=== PATIENT | male | born 1960 | race Caucasian/White ===

== ENCOUNTER 2023-12-20 13:15 | Emergency (ER) | payer BC, SELFPAY ==
[2023-12-20] VITALS (38 sets, daily range): BP systolic 89–119; BP diastolic 50–73; PULSE 67–103; TEMP 36.2–37.4; O2SAT 92–97; BMI 32.4
--- NOTE | 2023-12-20 14:39 | CT_ITS ---
[address] [address] Patient Name: JENI TRENT MRN: [id number] date: 1960 Sex: M Assigned Patient Location: ER Current Patient Location: ER Accession/Order Number: [id number] Exam Date: 12/20/2023 15:05 Report Date: 12/20/2023 16:57 At the request of: MARIANELA ARNOLD Procedure: CT abdomen pelvis w con CT ABDOMEN AND PELVIS WITH CONTRAST: INDICATION: Left lower quadrant pain, left groin hernia. COMPARISON: None. TECHNIQUE: Helical CT images of the abdomen and pelvis were obtained after the administration of intravenous contrast. Dose reduction techniques were achieved by using automated exposure control and/or adjustment of mA and/or kV according to patient size and/or use of iterative reconstruction technique. FINDINGS: LOWER CHEST: There are a few tree-in-bud micronodules within the right middle lobe and lower lobe. LIVER: 5 mm cyst in the left hepatic lobe. Mildly enlarged at 19 cm in length. Mild diffuse fatty infiltration. GALLBLADDER AND BILIARY SYSTEM: Moderate gallbladder wall thickening with calcification in the gallbladder wall suggestive of porcelain gallbladder. SPLEEN: Normal. PANCREAS: Normal. ADRENAL GLANDS: Normal. KIDNEYS AND URETERS: Bilateral perinephric stranding consistent with medical renal disease. Small hypodensity in the upper pole of the left kidney suggestive of a cyst but too small to characterize, 8 mm left upper pole renal cyst, 14 mm left lower pole renal cyst. Small hypodensity in the upper pole of the right kidney, too small to characterize. 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 Diffuse atherosclerotic calcification of the abdominal aorta, iliac and femoral arteries. RETROPERITONEUM AND LYMPH NODES: Normal, with no lymphadenopathy. GASTROINTESTINAL TRACT/MESENTERY: Moderate hiatal hernia. There is a large indirect left inguinal hernia which contains sigmoid colon and mesenteric fat. The sigmoid colon demonstrates moderate wall thickening within the hernia sac suspicious for ischemia although it is not significantly dilated. There is Normal mesentery/peritoneum. Normal appendix. BLADDER: Mild wall thickening which may be due to underdistention or chronic outlet obstruction and there is mild calcification in the anterior bladder wall. REPRODUCTIVE SYSTEM: Enlarged prostate gland measuring 6.1 cm transverse. BODY WALL: A large left inguinal hernia is again noted. There is also a large indirect right inguinal hernia containing fat and small bowel with no obstruction or strangulation. BONES: There are moderate to severe multilevel degenerative changes of the lumbar spine. There is a prominent Schmorl's node in the inferior endplate at L4. CT/CT abdomen pelvis w con IMPRESSION: 1. Large indirect left inguinal hernia containing sigmoid colon and fat. There is no evidence of obstruction however there is wall thickening within the herniated sigmoid colon suspicious for ischemia/strangulation. Recommend surgical consultation. 2. There is an additional large indirect right inguinal hernia containing small bowel and fat with no obstruction or strangulation. 3. Tree-in-bud micronodules at the right lung base suggestive of infectious or aspiration bronchiolitis. 4. Hiatal hernia. 5. Fatty liver, renal cysts, with some lesions too small to characterize and small hepatic cyst. 6. Gallbladder wall thickening with calcifications consistent with porcelain gallbladder. No definite soft tissue mass is identified however this can be a risk factor for gallbladder carcinoma and recommend follow-up ultrasound. 7. Bladder wall thickening which may be due to chronic outlet obstruction or cystitis. There are a few nonspecific calcifications also seen within the anterior gallbladder wall. 8. Prostatomegaly. Electronically authenticated by: MANDEEP BHAKTA Date: 12/20/2023 16:57
--- NOTE | 2023-12-20 14:42 | ED.ABDPAIN1 ---
HPI - Abdominal Pain General Chief Complaint: Abdominal Pain Stated Complaint: GROIN PAIN Time Seen by Provider: 12/20/23 14:17 Source: patient Mode of arrival: walk-in Limitations: no limitations History of Present Illness HPI narrative: 63-year-old male presents for hernia pain. He had this repaired about 10 years ago. He states a year later it started bulging out again and it has been like that since. Over the years its gotten bigger and he finally got to the point where he wanted to come in and have it looked at. He states that when it bulges out he is able to push it back in place. No vomiting. The pain is moderate and its intermittent. Related Data Home Medications ?Medication ?Instructions ?Recorded ?Confirmed No Known Home Medications 12/20/23 12/20/23 Allergies Allergy/AdvReac Type Severity Reaction Status Date / Time No Known Drug Allergies Allergy Verified 12/20/23 13:33 Review of Systems ROS Narrative A ten point review of systems is negative except as noted above. Exam Narrative Exam Narrative: Nurses note and vital signs reviewed and patient is not hypoxic. General: The patient appears well and in no apparent distress. Patient is resting comfortably on cart. Skin: Warm, dry, no pallor noted. There is no rash noted. Head: Normocephalic, atraumatic Eye: Normal conjunctiva, no drainage Ears, Nose, Mouth, and Throat: oral mucosa is moist. Nares patent. Cardiovascular: Regular Rate and Rhythm Respiratory: Patient is in no distress, no accessory muscle use, lungs are clear to auscultation, no wheezing, rales or rhonchi Back: non-tender, no CVA tenderness bilaterally to percussion. GI: Soft and nondistended. He has left inguinal hernia protruding into the scrotum. It is reducible. Musculoskeletal: The patient has no evidence of calf tenderness, no pitting edema, symmetrical pulses noted bilaterally Neurological: A&O, normal speech Psychiatric: Cooperative Constitutional Vital Signs, click to edit/add: Last Vital Signs Temp 97.2 F L 12/20/23 17:57 Pulse 71 12/20/23 17:42 Resp 18 12/20/23 17:42 BP 90/50 12/20/23 17:42 Pulse Ox 96 12/20/23 17:40 O2 Del Method Room Air 12/20/23 14:14 Course Vital Signs Vital signs: Vital Signs Temperature 98.6 F 12/20/23 13:28 Pulse Rate 103 H 12/20/23 13:28 Respiratory Rate 20 12/20/23 13:28 Blood Pressure 119/72 12/20/23 13:28 Pulse Oximetry 95 12/20/23 13:28 Oxygen Delivery Method Room Air 12/20/23 13:28 Temperature 97.2 F L 12/20/23 17:57 Pulse Rate 71 12/20/23 17:42 Respiratory Rate 18 12/20/23 17:42 Blood Pressure 90/50 12/20/23 17:42 Pulse Oximetry 96 12/20/23 17:40 Oxygen Delivery Method Room Air 12/20/23 14:14 MDM - Abdominal Pain MDM Narrative Medical decision making narrative: WBC is elevated at 26,000 and his lactic acid is normal. CAT scan is abnormal and the case was discussed with Dr. Quevedo. He requests transfer to a larger facility. Patient is requesting [place] and I have spoken to Dr. Wright, general surgeon on-call, and Dr. Cook, emergency physician. Dr. Wright requests transfer from the emergency department to the emergency department. The patient is agreeable and stable for transfer. Initially his blood pressure was in the 90s and has come up into the 100s with IV fluids. He has not eaten anything today and had very minimal to drink. At this point I do not suspect incarceration or strangulation. Incidental findings of the gallbladder were discussed with the patient as well. On exam I am able to I believe fully reduced of his hernia but when my hands are removed the hernia comes out immediately. The concern regards the mesh and the quite elevated WBC. Differential Diagnosis Differential diagnosis: Likely abdominal pain, calculus of kidney, constipation, diverticulitis, small bowel obstruction and other (Hernia) Lab Data Attestation: I reviewed the patient's lab results. Labs: Lab Results 12/20/23 Range/Units 14:30 WBC 26.7 H (4.0-11.0) 10^3/uL RBC 5.20 (4.70-6.10) 10^6/uL Hgb 15.5 (14.0-18.0) g/dL Hct 46.2 (42.0-54.0) % MCV 88.8 (80.0-94.0) fL MCH 29.8 (25.9-34.0) pg MCHC 33.5 (29.9-35.2) g/dL RDW 12.7 (11.0-15.0) % Plt Count 331 (150-450) 10^3/uL MPV 10.5 (9.5-13.5) fL Seg Neuts % (Manual) 82.0 H (43.0-75.0) Band Neutrophils % 2.0 (0-5) % Lymphocytes % (Manual) 7.0 L (20.5-60.0) % Monocytes % (Manual) 9.0 (1.7-12.0) % Eosinophils % (Manual) 0.0 L (0.9-7.0) % Basophils % (Manual) 0.0 L (0.2-2.0) % Neutrophils # (Manual) 21.89 H (1.4-6.5) 10^3/uL Band Neutrophils # 0.5 H (0.0-0.3) 10^3/uL Lymphocytes # (Manual) 1.86 (1.20-3.80) 10^3/uL Monocytes # (Manual) 2.40 H (0.30-0.80) 10^3/uL Eosinophils # (Manual) 0.00 (0.00-0.70) 10^3/uL Basophils # (Manual) 0.00 (0.00-0.10) 10^3/uL Sodium 137 (136-145) mmol/L Potassium 3.5 (3.5-5.1) mmol/L Chloride 102 (98-107) mmol/L Carbon Dioxide 24.4 (21.0-32.0) mmol/L Anion Gap 14.1 BUN 14.0 (7.0-18.0) mg/dL Creatinine 1.08 (0.70-1.30) mg/dL Est GFR ( Amer) >60 (>=60) Est GFR (Non-Af Amer) >60 (>=60) BUN/Creatinine Ratio 13.0 Glucose 122 H (74-106) mg/dL Lactate 1.2 (0.4-2.0) mmol/L Calcium 8.9 (8.5-10.1) mg/dL Imaging Data CT scan - abdomen: Radiologist's impression: ITS Impressions Abdomen/Pelvis CT 12/20/23 14:39 IMPRESSION: 1. Large indirect left inguinal hernia containing sigmoid colon and fat. There is no evidence of obstruction however there is wall thickening within the herniated sigmoid colon suspicious for ischemia/strangulation. Recommend surgical consultation. 2. There is an additional large indirect right inguinal hernia containing small bowel and fat with no obstruction or strangulation. 3. Tree-in-bud micronodules at the right lung base suggestive of infectious or aspiration bronchiolitis. 4. Hiatal hernia. 5. Fatty liver, renal cysts, with some lesions too small to characterize and small hepatic cyst. 6. Gallbladder wall thickening with calcifications consistent with porcelain gallbladder. No definite soft tissue mass is identified however this can be a risk factor for gallbladder carcinoma and recommend follow-up ultrasound. 7. Bladder wall thickening which may be due to chronic outlet obstruction or cystitis. There are a few nonspecific calcifications also seen within the anterior gallbladder wall. 8. Prostatomegaly. Electronically authenticated by: MANDEEP BHAKTA Date: 12/20/2023 16:57 Discharge Plan Discharge Chief Complaint: Abdominal Pain Clinical Impression: Abdominal pain, Leukocytosis, Inguinal hernia Patient Disposition: [facility] Time of Disposition Decision: 18:03 Discharge Location: [facility] [address] Condition: Fair Mode of Transportation: Private Vehicle
[2023-12-20 14:49] LABS: Hematocrit 46.2 % (42.0-54.0); Hemoglobin 15.5 g/dL (14.0-18.0); Mean Corpuscular HGB Conc 33.5 g/dL (29.9-35.2); Mean Corpuscular Hemoglobin 29.8 pg (25.9-34.0); Mean Corpuscular Volume 88.8 fL (80.0-94.0); Mean Platelet Volume 10.5 fL (9.5-13.5); Platelet Count 331 10^3/uL (150-450); Red Cell Distribution Width 12.7 % (11.0-15.0); White Blood Count 26.7 10^3/uL (4.0-11.0)
[2023-12-20 14:57] LABS: Anion Gap 14.1; Calcium 8.9 mg/dL (8.5-10.1); Carbon Dioxide 24.4 mmol/L (21.0-32.0); Chloride 102 mmol/L (98-107); Estimated GFR (African America >60 (>=60); Estimated GFR (Non-African Ame >60 (>=60); Glucose 122 mg/dL (74-106); Potassium 3.5 mmol/L (3.5-5.1); Sodium 137 mmol/L (136-145)
[2023-12-20 15:07] LABS: Band Neutrophils Absolute 0.5 10^3/uL (0.0-0.3); Lymphocytes Absolute Manual 1.86 10^3/uL (1.20-3.80); Segmented Neut Absolute Manual 21.89 10^3/uL (1.4-6.5)
[2023-12-20 15:08] LABS: Lactate/Lactic Acid 1.2 mmol/L (0.4-2.0)
[2023-12-20] MEDS: 0.9 % SODIUM CHLORIDE 1,000 ML 200 ML IV (16:46)
[2023-12-20] MEDS: 0.9 % SODIUM CHLORIDE 1,000 ML 1000 ML IV (18:04)
[2023-12-20] MEDS: PIPERACILLIN SODIUM/TAZOBACTAM 3.375 GM in 0.9 % SODIUM CHLORIDE 50 ML IV (19:27)
== END 2023-12-20 20:50 | disposition short-term general hospital (02) ==
PROVIDERS: Emergency Provider Emergency Medicine; PCP Internal Medicine
DX: K40.90 Unilateral inguinal hernia, without obstruction or gangrene, not specified as recurrent (principal); R10.9 Unspecified abdominal pain
CPT/HCPCS: 36415; 74177; 80048; 83605; 85007; 85027; 96365; 99285; J2543; Q9967

== ENCOUNTER 2024-01-11 11:52 | Emergency (ER) | payer BC, SELFPAY ==
[2024-01-11] VITALS (7 sets, daily range): BP systolic 108–154; BP diastolic 65–101; PULSE 85–110; TEMP 37.2–39.5; O2SAT 92–98; BMI 32.7
--- OUTSIDE RECORDS SUMMARY | 2024-01-11 12:03 | XMS_ITS | CCD ---
Author Organization [facility] Care Team Providers Care Division Head Name Role Phone Rosa Laird Unavailable DR AISSATOU DUKE Admitting Unavailable SRIKANTH, DR AISSATOU Gonzalez Attending Unavailable SRIKANTH, DR AISSATOU Gonzalez Consulting Unavailable BLANCA, DR ISRA [facility] Unavail able SUSAN MADRIGAL Consulting Unavailable BLANCA, DR ISRA [facility] Unavail able ALMAZ URIBE Admitting Unavailable ALMAZ URIBE Attending Unavailable ALMAZ URIBE Consulting Unavailable MIGUEL LI Consulting Unavailable GILDA JOHN Consulting Unavailable ISRA RIOS Referring Unavailabl e BLANCA, ISRA Meadows Referring Unavailabl e BLANCA, CLARA M Primary Care Unavailchuy e MANDEEP PARK Consulting Unavailable MANDEEP PARK Admitting Unavailable MANDEEP PARK Attending Unavailable Problems Active Problems Problem Classification Problem Date Documented Da te Episodic/Chronic Abdominal hernia (1 source) Unilateral inguinal hernia, without obstruction or gangrene, not specified as recurrent; Translations: [Unilateral inguinal hernia, without obstruction or gangrene, not specified as recurrent] Onset: 12-20-2023 Episodic Conditions associated with dizziness or vertigo (4 sources) Dizziness and giddiness; Translations: [DIZZINESS AND GIDDINESS] Onset: 07-22-2022 Episodic Immunizations and screening for infectious disease (1 source) Contact with and (suspected) exposure to other viral communicable diseases Episodic Other aftercare (1 source) Other intermediate manager (current) drug therapy; Translations: [OTH JAIL CURRENT DRUG THERAPY] Onset: 07-24-2022 Episodic Other non-traumatic joint disorders (1 source) Pain in right hip; Translations: [Pain in right hip] Onset: 08-21-2023 Episodic Other non-traumatic joint disorders (1 source) Pain in left knee; Translations: [Pain in left knee] Onset: 08-21-2023 Episodic Other non-traumatic joint disorders (1 source) Pain in unspecified hip; Translations: [Pain in unspecified hip] Onset: 08-21-2023 Episodic Other upper respiratory infections (1 source) Acute upper respiratory infection, unspecified Episodic Unclassified (1 source) CONTACT W/AND (SUSP) EXPOS COVID-19; Translations: [CONTACT W/AND (SUSP) EXPOS COVID-19] Onset: 07-24-2022 Past or Other Problems Problem Classification Problem Date Documented Da te Episodic/Chronic E Codes: Struck by; against (1 source) Striking against or struck by other objects, initial encounter; Translations: [STRIKING AGNST/STRUCK OTH OBJ INIT] Onset: 11-19-2021 Episodic Other connective tissue disease (3 sources) Pain in left hand; Translations: [PAIN IN LEFT HAND] Onset: 11-16-2021 Episodic Superficial injury; contusion (1 source) Contusion of left hand, initial encounter; Translations: [CONTUSION LEFT HAND INITIAL ENC] Onset: 11-19-2021 Episodic Results Test Name Value Interpretation Reference Range Facility Lactic Acidon 12-24-2023 Lactic Acid,Whole Bl 1.0 mmol/L Normal 0.7-2.1 [facility] Comment on above: Performed By: #### L ACTIC #### [facility] [address] [place] [id number] [employer]: Daquan Daniel MD Basic Metab w/rfx MGon 12-22 Anion gap [Moles/Vol] 9 mmol/L Normal 16 [facility] Comment on above: Performed By: #### B MPX, CDP #### [facility] [address] [place] [phone] [employer]: Daquan Daniel MD Calcium [Mass/Vol] 8.7 mg/dL Normal 8.6-10.4 [facility] Comment on above: Performed By: #### B MPX, CDP #### [employer] [address] [place] [id number] [employer]: Daquan Daniel MD Chloride [Moles/Vol] 103 mmol/L Normal 98-107 [facility] Comment on above: Performed By: #### B MPX, CDP #### [facility] [address] [place] [address] [employer]: Daquan Daniel MD CO2 [Moles/Vol] 25 mmol/L Normal 20-31 [facility] Comment on above: Performed By: #### B MPX, CDP #### [facility] [address] [place] [address] [employer]: Daquan Daniel MD Creatinine [Mass/Vol] 0.8 mg/dL Normal 0.70-1.20 [facility] Comment on above: Performed By: #### B MPX, CDP #### [address] [address] [employer]: Daquan Daniel MD GFR/1.73 sq M.predicted among non-blacks MDRD (S/P/Bld) [Vol rate/Area] mL/min/{1.73_m2} Normal >60 [facility] Comment on above: Result Comment: These results are not intended for use in patients <18 years of age. eGFR results are calculated without a race factor using the 2020 CKD-EPI equation. Careful clinical correlation is recommended, particularly when comparing to results calculated using previous equations. The CKD-EPI equation is less accurate in patients with extremes of muscle mass, extra-renal metabolism of creatine, excessive creatine ingestion, or following therapy that affects renal tubular secretion. Performed By: #### B MPX, CDP #### [facility] [address] [place] [phone] [employer]: Daquan Daniel MD Glucose [Mass/Vol] 134 mg/dL High 74-99 [facility] Comment on above: Performed By: #### B MPX, CDP #### [facility] [address] [place] [address] [employer]: Daquan Daniel MD Potassium [Moles/Vol] 3.7 mmol/L Normal 3.7-5.3 [facility] Comment on above: Performed By: #### B YADIX, CDP #### [address] [address] [employer]: Daquan Daniel MD Sodium [Moles/Vol] 137 mmol/L Normal 136-145 [facility] Comment on above: Performed By: #### B MPX, CDP #### [address] [address] [employer]: Daquan Daniel MD Urea nitrogen [Mass/Vol] 10 mg/dL Normal 8-23 [facility] Comment on above: Performed By: #### B YADIX, CDP #### [address] [address] [employer]: Daquan Daniel MD CBC with Diffon 12-23-2023 Abs. Basophil 0.05 k/uL Normal 0.00-0.20 [facility] Comment on above: Performed By: #### B YADIX, CDP #### [address] [address] [employer]: Daquan Daniel MD Abs.Imm.Granulocyt e 0.03 k/uL Normal 0.00-0.30 [facility] Comment on above: Performed By: #### B YADIX, CDP #### [address] [address] [employer]: Daquan Daniel MD Abs.Neutrophil (Seg) 7.39 k/uL Normal 1.50-8.10 [facility] Comment on above: Performed By: #### B MPX, CDP #### [address] [address] [employer]: Daquan Daniel MD Basophils/100 WBC (Bld) 1 % Normal 0-2 [facility] Comment on above: Performed By: #### B MPX, CDP #### [facility] [address] [place] [address] [employer]: Daquan Daniel MD Eosinophils (Bld) [#/Vol] 0.30 10*3/uL Normal 0.00-0.44 [facility] Comment on above: Performed By: #### B MPX, CDP #### [facility] [address] [place] [address] [employer]: Daquan Daniel MD Eosinophils/100 WBC (Bld) 3 % Normal 1-4 [facility] Comment on above: Performed By: #### B MPX, CDP #### [facility] [address] [place] [address] [employer]: Daquan Daniel MD Erythrocyte distribution width (RBC) [Ratio] 12.9 % Normal 11.8-14.4 [facility] Comment on above: Performed By: #### B MPX, CDP #### [address] [address] [employer]: Daquan Daniel MD Hematocrit (Bld) [Volume fraction] 41.0 % Normal 40.7-50.3 [facility] Comment on above: Performed By: #### B MPX, CDP #### [facility] [address] [place] [address] [employer]: Daquan Daniel MD Hemoglobin (Bld) [Mass/Vol] 13.3 g/dL Normal 13.0-17.0 [facility] Comment on above: Performed By: #### B MPX, CDP #### [facility] [address] [place] [address] [employer]: Daquan Daniel MD Immature granulocytes/100 WBC (Bld) 0 % Normal 0 [facility] Comment on above: Performed By: #### B MPX, CDP #### [address] [address] [employer]: Daquan Daniel MD Lymphocytes (Bld) [#/Vol] 2.24 10*3/uL Normal 1.10-3.70 [facility] Comment on above: Performed By: #### B MPX, CDP #### [address] [address] [employer]: Daquan Daniel MD Lymphocytes/100 WBC (Bld) 21 % Low 24-43 [facility] Comment on above: Performed By: #### B MPX, CDP #### [address] [address] [employer]: Daquan Daniel MD MCH (RBC) [Entitic mass] 30.0 pg Normal 25.2-33.5 [facility] Comment on above: Performed By: #### B MPX, CDP #### [place] [address] [employer]: Daquan Daniel MD MCHC (RBC) [Mass/Vol] 32.4 g/dL Normal 28.4-34.8 [facility] Comment on above: Performed By: #### B MPX, CDP #### [place] [address] [employer]: Daquan Daniel MD MCV (RBC) [Entitic vol] 92.3 fL Normal 82.6-102.9 [facility] Comment on above: Performed By: #### B MPX, CDP #### [address] [address] [employer]: Daquan Daniel MD Monocytes (Bld) [#/Vol] 0.63 10*3/uL Normal 0.10-1.20 [facility] Comment on above: Performed By: #### B MPX, CDP #### [address] [address] [employer]: Daquan Daniel MD Monocytes/100 WBC (Bld) 6 % Normal 3-12 [facility] Comment on above: Performed By: #### B MPX, CDP #### [facility] [address] [place] [address] [employer]: Daquan Daniel MD Neutrophil (Seg) 69 % High 36-65 [facility] Comment on above: Performed By: #### B MPX, CDP #### [facility] [address] [place] [address] [employer]: Daquan Daniel MD NRBC Automated 0.0 per 100 WBC Normal 0.0 [facility] Comment on above: Performed By: #### B MPX, CDP #### [facility] [address] [place] [address] [employer]: Daquan Daniel MD Platelet mean volume (Bld) [Entitic vol] 10.7 fL Normal 8.1-13.5 [facility] Comment on above: Performed By: #### B MPX, CDP #### [address] [address] [employer]: Daquan Daniel MD Platelets (Bld) [#/Vol] 264 10*3/uL Normal 138-453 [facility] Comment on above: Performed By: #### B MPX, CDP #### [facility] [address] [place] [address] [employer]: Daquan Daniel MD RBC (Bld) [#/Vol] 4.44 10*6/uL Normal 4.21-5.77 [facility] Comment on above: Performed By: #### B MPX, CDP #### [facility] [address] [place] [address] [employer]: Daquan Daniel MD WBC (Bld) [#/Vol] 10.6 10*3/uL Normal 3.5-11.3 [facility] Comment on above: Performed By: #### B MPX, CDP #### [facility] [address] [place] [address] [employer]: Daquan Daniel MD Lactic Acidon 12-23-2023 Lactic Acid,Whole Bl 0.8 mmol/L Normal 0.7-2.1 [facility] Comment on above: Performed By: #### L ACTIC #### [facility] [address] [place] [address] [employer]: Daquan Daniel MD Lactic Acid,Whole Bl 1.5 mmol/L Normal 0.7-2.1 [facility] Comment on above: Performed By: #### B MPX, CDP #### [facility] [address] [place] [address] [employer]: Daquan Daniel MD Liver Profileon 12-23-2023 Albumin [Mass/Vol] 3.7 g/dL Normal 3.5-5.2 [facility] Comment on above: Performed By: #### B MPX, CDP #### [facility] [address] [place] [address] [employer]: Daquan Daniel MD Albumin/Glob Ratio 1.0 Normal 1.0-2.5 [facility] Comment on above: Performed By: #### B MPX, CDP #### [facility] [address] [place] [address] [employer]: Daquan Daniel MD Alkaline Phos 66 U/L Normal 40-129 [facility] Comment on above: Performed By: #### B MPX, CDP #### [facility] [address] [place] [address] [employer]: Daquan Daniel MD ALT [Catalytic activity/Vol] 13 U/L Normal 10-50 [facility] Comment on above: Performed By: #### B MPX, CDP #### [facility] [address] [place] [address] [employer]: Daquan Daniel MD AST [Catalytic activity/Vol] 16 U/L Normal 10-50 [facility] Comment on above: Performed By: #### B MPX, CDP #### [facility] [address] [place] [address] [employer]: Daquan Daniel MD Bilirubin [Mass/Vol] 0.4 mg/dL Normal 0.00-1.20 [facility] Comment on above: Performed By: #### B MPX, CDP #### [facility] [address] [place] [id number] [employer]: Daquan Daniel MD Bilirubin, Indirect 0.2 mg/dL Normal 0.0-1.0 [facility] Comment on above: Performed By: #### B MPX, CDP #### [facility] [address] [place] [address] [employer]: Daquan Daniel MD Bilirubin.indirect [Mass/Vol] 0.2 mg/dL Normal 0.0-0.2 [facility] Comment on above: Performed By: #### B MPX, CDP #### [facility] [address] [place] [address] [employer]: Daquan Daniel MD Globulin (S) [Mass/Vol] 2.7 g/dL Normal [facility] Comment on above: Performed By: #### B MPX, CDP #### [facility] [address] [place] [address] [employer]: Daquan Daniel MD Protein [Mass/Vol] 6.4 g/dL Low 6.6-8.7 [facility] Comment on above: Performed By: #### B MPX, CDP #### [facility] [address] [place] [address] [employer]: Daquan Daniel MD Basic Metab w/rfx MGon 12-21 Anion gap [Moles/Vol] 10 mmol/L Normal 9-16 [facility] Comment on above: Performed By: #### C DP, BMPX #### [facility] [address] [place] [address] [employer]: Daquan Daniel MD Calcium [Mass/Vol] 8.1 mg/dL Low 8.6-10.4 [facility] Comment on above: Performed By: #### C DP, BMPX #### [facility] [address] [place] [address] [employer]: Daquan Daniel MD Chloride [Moles/Vol] 105 mmol/L Normal 98-107 [facility] Comment on above: Performed By: #### C DP, BMPX #### [facility] [address] [place] [address] [employer]: Daquan Daniel MD CO2 [Moles/Vol] 19 mmol/L Low 20-31 [facility] Comment on above: Performed By: #### C DP, BMPX #### [facility] [address] [place] [address] [employer]: Daquan Daniel MD Creatinine [Mass/Vol] 0.8 mg/dL Normal 0.70-1.20 [facility] Comment on above: Performed By: #### C DP, BMPX #### [facility] [address] [place] [address] [employer]: Daquan Daniel MD GFR/1.73 sq M.predicted among non-blacks MDRD (S/P/Bld) [Vol rate/Area] mL/min/{1.73_m2} Normal >60 [facility] Comment on above: Result Comment: These results are not intended for use in patients <18 years of age. eGFR results are calculated without a race factor using the 2020 CKD-EPI equation. Careful clinical correlation is recommended, particularly when comparing to results calculated using previous equations. The CKD-EPI equation is less accurate in patients with extremes of muscle mass, extra-renal metabolism of creatine, excessive creatine ingestion, or following therapy that affects renal tubular secretion. Performed By: #### C DP, BMPX #### [facility] [address] [place] [address] [employer]: Daquan Daniel MD Glucose [Mass/Vol] 112 mg/dL High 74-99 [facility] Comment on above: Performed By: #### C DP, BMPX #### [facility] [address] [place] [address] [employer]: Daquan Daniel MD Potassium [Moles/Vol] 4.6 mmol/L Normal 3.7-5.3 [facility] Comment on above: Result Comment: SPEC IMEN SLIGHTLY HEMOLYZED, RESULTS MAY BE ADVERSELY AFFECTED. Performed By: #### C DP, BMPX #### [facility] [address] [place] [address] [employer]: Daquan Daniel MD Sodium [Moles/Vol] 134 mmol/L Low 136-145 [facility] Comment on above: Performed By: #### C DP, BMPX #### [facility] [address] [place] [phone] [employer]: Daquan Daniel MD Urea nitrogen [Mass/Vol] 11 mg/dL Normal 8-23 [facility] Comment on above: Performed By: #### C DP, BMPX #### [facility] [address] [place] [address] [employer]: Daquan Daniel MD CBC with Diffon 12-22-2023 Abs. Basophil <0.03 Normal 0.00-0.20 [facility] Comment on above: Performed By: #### C DP, BMPX #### [facility] [address] [place] [address] [employer]: Daquan Daniel MD Abs. Eosinophil <0.03 Normal 0.00-0.44 [facility] Comment on above: Performed By: #### C DP, BMPX #### [address] [address] [employer]: Daquan Daniel MD Abs.Imm.Granulocyt e 0.08 k/uL Normal 0.00-0.30 [facility] Comment on above: Performed By: #### C DP, BMPX #### [address] [address] [employer]: Daquan Daniel MD Abs.Neutrophil (Seg) 9.94 k/uL High 1.50-8.10 [facility] Comment on above: Performed By: #### C DP, BMPX #### [address] [address] [employer]: Daquan Daniel MD Basophils/100 WBC (Bld) 0 % Normal 0-2 [facility] Comment on above: Performed By: #### C DP, BMPX #### [address] [address] [employer]: Daquan Daniel MD Eosinophils/100 WBC (Bld) 0 % Low 1-4 [facility] Comment on above: Performed By: #### C DP, BMPX #### [facility] [address] [place] [address] [employer]: Daquan Daniel MD Erythrocyte distribution width (RBC) [Ratio] 12.8 % Normal 11.8-14.4 [facility] Comment on above: Performed By: #### C DP, BMPX #### [facility] [address] [place] [address] [employer]: Daquan Daniel MD Hematocrit (Bld) [Volume fraction] 41.1 % Normal 40.7-50.3 [facility] Comment on above: Performed By: #### C DP, BMPX #### [address] [address] [employer]: Daquan Daniel MD Hemoglobin (Bld) [Mass/Vol] 12.8 g/dL Low 13.0-17.0 [facility] Comment on above: Performed By: #### C DP, BMPX #### [address] [address] [employer]: Daquan Daniel MD Immature granulocytes/100 WBC (Bld) 1 % High 0 [facility] Comment on above: Performed By: #### C DP, BMPX #### [address] [address] [employer]: Daquan Daniel MD Lymphocytes (Bld) [#/Vol] 1.23 10*3/uL Normal 1.10-3.70 [facility] Comment on above: Performed By: #### C DP, BMPX #### [address] [address] [employer]: Daquan Daniel MD Lymphocytes/100 WBC (Bld) 10 % Low 24-43 [facility] Comment on above: Performed By: #### C DP, BMPX #### [place] [address] [employer]: Daquan Daniel MD MCH (RBC) [Entitic mass] 30.0 pg Normal 25.2-33.5 [facility] Comment on above: Performed By: #### C DP, BMPX #### [address] [address] [employer]: Daquan Daniel MD MCHC (RBC) [Mass/Vol] 31.1 g/dL Normal 28.4-34.8 [facility] Comment on above: Performed By: #### C DP, BMPX #### [address] [address] [employer]: Daquan Daniel MD MCV (RBC) [Entitic vol] 96.3 fL Normal 82.6-102.9 [facility] Comment on above: Performed By: #### C DP, BMPX #### [address] [address] [employer]: Daquan Daniel MD Monocytes (Bld) [#/Vol] 0.91 10*3/uL Normal 0.10-1.20 [facility] Comment on above: Performed By: #### C DP, BMPX #### [address] [address] [employer]: Daquan Daniel MD Monocytes/100 WBC (Bld) 8 % Normal 3-12 [facility] Comment on above: Performed By: #### C DP, BMPX #### [address] [address] [employer]: Daquan Daniel MD Neutrophil (Seg) 81 % High 36-65 [facility] Comment on above: Performed By: #### C DP, BMPX #### [address] [address] [employer]: Daquan Daniel MD NRBC Automated 0.0 per 100 WBC Normal 0.0 [facility] Comment on above: Performed By: #### C DP, BMPX #### [address] [address] [employer]: Daquan Daniel MD Platelet mean volume (Bld) [Entitic vol] 10.2 fL Normal 8.1-13.5 [facility] Comment on above: Performed By: #### C DP, BMPX #### [address] [address] [employer]: Daquan Daniel MD Platelets (Bld) [#/Vol] 249 10*3/uL Normal 138-453 [facility] Comment on above: Performed By: #### C DP, BMPX #### [facility] [address] [place] [address] [employer]: Daquan Daniel MD RBC (Bld) [#/Vol] 4.27 10*6/uL Normal 4.21-5.77 [facility] Comment on above: Performed By: #### C DP, BMPX #### [facility] [address] [place] [address] [employer]: Daquan Daniel MD WBC (Bld) [#/Vol] 12.2 10*3/uL High 3.5-11.3 [facility] Comment on above: Performed By: #### C DP, BMPX #### [facility] [address] [place] [address] [employer]: Daquan Daniel MD Lactic Acidon 12-22-2023 Lactic Acid,Whole Bl 2.4 mmol/L High 0.7-2.1 [facility] Comment on above: Performed By: #### L ACTIC #### [facility] [address] [place] [address] [employer]: Daquan Daniel MD Lactic Acid,Whole Bl 2.2 mmol/L High 0.7-2.1 [facility] Comment on above: Performed By: #### L ACTIC #### [facility] [address] [place] [address] [employer]: Daquan Daniel MD Lactic Acid,Whole Bl 0.9 mmol/L Normal 0.7-2.1 [facility] Comment on above: Performed By: #### L ACTIC #### [facility] [address] [place] [address] [employer]: Daquan Daniel MD Basic Metab w/rfx MGon 12-20 Anion gap [Moles/Vol] 9 mmol/L Normal 9-16 [facility] Comment on above: Performed By: #### B MPX, CDP #### [facility] [address] [place] [address] [employer]: Daquan Daniel MD Calcium [Mass/Vol] 8.2 mg/dL Low 8.6-10.4 [facility] Comment on above: Performed By: #### B MPX, CDP #### [facility] [address] [place] [address] [employer]: Daquan Daniel MD Chloride [Moles/Vol] 107 mmol/L Normal 98-107 [facility] Comment on above: Performed By: #### B MPX, CDP #### [facility] [address] [place] [place] [id number] [employer]: Daquan Daniel MD CO2 [Moles/Vol] 21 mmol/L Normal 20-31 [facility] Comment on above: Performed By: #### B MPX, CDP #### [facility] [address] [place] [id number] [employer]: Daquan Daniel MD Creatinine [Mass/Vol] 0.9 mg/dL Normal 0.70-1.20 [facility] Comment on above: Performed By: #### B MPX, CDP #### [facility] [address] [place] [address] [id number] [employer]: Daquan Daniel MD GFR/1.73 sq M.predicted among non-blacks MDRD (S/P/Bld) [Vol rate/Area] mL/min/{1.73_m2} Normal >60 [facility] Comment on above: Result Comment: These results are not intended for use in patients <18 years of age. eGFR results are calculated without a race factor using the 2020 CKD-EPI equation. Careful clinical correlation is recommended, particularly when comparing to results calculated using previous equations. The CKD-EPI equation is less accurate in patients with extremes of muscle mass, extra-renal metabolism of creatine, excessive creatine ingestion, or following therapy that affects renal tubular secretion. Performed By: #### B MPX, CDP #### [facility] [address] [place] [id number] [employer]: Daquan Daniel MD Glucose [Mass/Vol] 102 mg/dL High 74-99 [facility] Comment on above: Performed By: #### B MPX, CDP #### [facility] [address] [place] [address] 61606 [employer]: Daquan Daniel MD Potassium [Moles/Vol] 3.9 mmol/L Normal 3.7-5.3 [facility] Comment on above: Result Comment: SPEC IMEN SLIGHTLY HEMOLYZED, RESULTS MAY BE ADVERSELY AFFECTED. Performed By: #### B MPX, CDP #### [facility] [address] [place] [address] [id number] [employer]: Daquan Daniel MD Sodium [Moles/Vol] 137 mmol/L Normal 136-145 [facility] Comment on above: Performed By: #### B MPX, CDP #### [facility] [address] [place] [address] [phone] [employer]: Daquan Daniel MD Urea nitrogen [Mass/Vol] 12 mg/dL Normal 8-23 [facility] Comment on above: Performed By: #### B MPX, CDP #### [facility] [address] [place] [address] 66022 [employer]: Daquan Daniel MD CBC with Diffon 12-21-2023 Abs. Basophil 0.06 k/uL Normal 0.00-0.20 [facility] Comment on above: Performed By: #### B MPX, CDP #### [facility] [address] [place] [address] 17810 [employer]: Daquan Daniel MD Abs.Imm.Granulocyt e 0.05 k/uL Normal 0.00-0.30 [facility] Comment on above: Performed By: #### B MPX, CDP #### [address] [address] [employer]: Daquan Daniel MD Abs.Neutrophil (Seg) 9.66 k/uL High 1.50-8.10 [facility] Comment on above: Performed By: #### B MPX, CDP #### [address] [address] [employer]: Daquan Daniel MD Basophils/100 WBC (Bld) 0 % Normal 0-2 [facility] Comment on above: Performed By: #### B MPX, CDP #### [address] [address] [employer]: Daquan Daniel MD Eosinophils (Bld) [#/Vol] 0.39 10*3/uL Normal 0.00-0.44 [facility] Comment on above: Performed By: #### B MPX, CDP #### [address] [address] [employer]: Daquan Daniel MD Eosinophils/100 WBC (Bld) 3 % Normal 1-4 [facility] Comment on above: Performed By: #### B MPX, CDP #### [address] [address] [employer]: Daquan Daniel MD Erythrocyte distribution width (RBC) [Ratio] 13.2 % Normal 11.8-14.4 [facility] Comment on above: Performed By: #### B MPX, CDP #### [address] [address] [employer]: Daquan Daniel MD Hematocrit (Bld) [Volume fraction] 43.0 % Normal 40.7-50.3 [facility] Comment on above: Performed By: #### B MPX, CDP #### [address] [address] [employer]: Daquan Daniel MD Hemoglobin (Bld) [Mass/Vol] 13.5 g/dL Normal 13.0-17.0 [facility] Comment on above: Performed By: #### B MPX, CDP #### [facility] [address] [place] [address] 26865 [employer]: Daquan Daniel MD Immature granulocytes/100 WBC (Bld) 0 % Normal 0 [facility] Comment on above: Performed By: #### B MPX, CDP #### [facility] [address] [place] [address] [phone] [employer]: Daquan Daniel MD Lymphocytes (Bld) [#/Vol] 2.86 10*3/uL Normal 1.10-3.70 [facility] Comment on above: Performed By: #### B MPX, CDP #### [address] [address] [employer]: Daquan Daniel MD Lymphocytes/100 WBC (Bld) 20 % Low 24-43 [facility] Comment on above: Performed By: #### B MPX, CDP #### [address] [address] [employer]: Daquan Daniel MD MCH (RBC) [Entitic mass] 30.4 pg Normal 25.2-33.5 [facility] Comment on above: Performed By: #### B MPX, CDP #### [facility] [address] [place] [address] 60925 [employer]: Daquan Daniel MD MCHC (RBC) [Mass/Vol] 31.4 g/dL Normal 28.4-34.8 [facility] Comment on above: Performed By: #### B MPX, CDP #### [address] [address] [employer]: Daquan Daniel MD MCV (RBC) [Entitic vol] 96.8 fL Normal 82.6-102.9 [facility] Comment on above: Performed By: #### B MPX, CDP #### [address] [address] [employer]: Daquan Daniel MD Monocytes (Bld) [#/Vol] 0.99 10*3/uL Normal 0.10-1.20 [facility] Comment on above: Performed By: #### B MPX, CDP #### [address] [address] [employer]: Daquan Daniel MD Monocytes/100 WBC (Bld) 7 % Normal 3-12 [facility] Comment on above: Performed By: #### B MPX, CDP #### [address] [address] [employer]: Daquan Daniel MD Neutrophil (Seg) 69 % High 36-65 [facility] Comment on above: Performed By: #### B MPX, CDP #### [address] [address] [employer]: Daquan Daniel MD NRBC Automated 0.0 per 100 WBC Normal 0.0 [facility] Comment on above: Performed By: #### B MPX, CDP #### [address] [address] [employer]: Daquan Daniel MD Platelet mean volume (Bld) [Entitic vol] 10.1 fL Normal 8.1-13.5 [facility] Comment on above: Performed By: #### B MPX, CDP #### [address] [address] [employer]: Daquan Daniel MD Platelets (Bld) [#/Vol] 241 10*3/uL Normal 138-453 [facility] Comment on above: Performed By: #### B MPX, CDP #### [facility] [address] [place] [address] 10566 [employer]: Daquan Daniel MD RBC (Bld) [#/Vol] 4.44 10*6/uL Normal 4.21-5.77 [facility] Comment on above: Performed By: #### B MPX, CDP #### [facility] [address] [place] [phone] [employer]: Daquan Daniel MD WBC (Bld) [#/Vol] 14.0 10*3/uL High 3.5-11.3 [facility] Comment on above: Performed By: #### B MPX, CDP #### [facility] [address] [place] [address] 57024 [employer]: Daquan Daniel MD Lactic Acidon 12-21-2023 Lactic Acid,Whole Bl 1.2 mmol/L Normal 0.7-2.1 [facility] Comment on above: Performed By: #### L ACTIC #### [facility] [address] [place] [address] 30489 [employer]: Daquan Daniel MD Lactic Acid,Whole Bl 1.3 mmol/L Normal 0.7-2.1 [facility] Comment on above: Performed By: #### L ACTIC #### [facility] [address] [place] [address]858 [employer]: Daquan Daniel MD Lactic Acid,Whole Bl 1.2 mmol/L Normal 0.7-2.1 [facility] Comment on above: Performed By: #### L ACTIC #### [facility] [address] [place] [address] 16263 [employer]: Daquan Daniel MD Urinalysis, Routineon 2023 Bilirubin, SemiQt,Ur Negative Normal NEG [facility] Comment on above: Performed By: #### U MICAO, UA #### [facility] [address] [place] [address] 24859 [employer]: Daquan Daniel MD Blood, Urine Negative Normal NEG [facility] Comment on above: Performed By: #### U MICAO, UA #### [facility] [address] [place] [address] 68141 [employer]: Daquan Daniel MD Clarity (U) Clear Normal CLEAR [facility] Comment on above: Performed By: #### U MICAO, UA #### [facility] [address] [place] [address] 06644 [employer]: Daquan Daniel MD Color (U) Yellow Normal YEL [facility] Comment on above: Performed By: #### U MICAO, UA #### [facility] [address] [place] [address] 53178 [employer]: Daquan Daniel MD Glucose Ql (U) Negative Normal NEG [facility] Comment on above: Performed By: #### U MICAO, UA #### [facility] [address] [place] [address] 26558 [employer]: Daquan Daniel MD Ketones Ql (U) TRACE Abnormal NEG [facility] Comment on above: Performed By: #### U MICAO, UA #### [facility] [address] [place] [address] 54937 [employer]: Daquan Daniel MD Leukocyte esterase Test strip Ql (U) Negative Normal NEG [facility] Comment on above: Performed By: #### U MICAO, UA #### [facility] [address] [place] [address] [phone] [employer]: Daquan Daniel MD Nitrite,Ur Negative Normal NEG [facility] Comment on above: Performed By: #### U MICAO, UA #### [address] [address] [employer]: Daquan Daniel MD PH,Ur 6.0 Normal 5.0-8.0 [facility] Comment on above: Performed By: #### U MICAO, UA #### [address] [address] [employer]: Daquan Daniel MD Protein Ql (U) TRACE Abnormal NEG [facility] Comment on above: Performed By: #### U MICAO, UA #### [address] [address] [employer]: Daquan Daniel MD Spec. Healy,Ur 1.029 Normal 1.005-1.030 [facility] Comment on above: Performed By: #### U MICAO, UA #### [address] [address] [employer]: Daquan Daniel MD Urobilinogen,Ur Normal Normal 0.0-1.0 [facility] Comment on above: Performed By: #### U MICAO, UA #### [address] [address] [employer]: Daquan Daniel MD Urinalysis,Microon 4 Bacteria None Normal NONE [facility] Comment on above: Performed By: #### U MICAO, UA #### [address] [address] [employer]: Daquan Daniel MD Casts 2 TO 5 HYALINE Normal 0-8 [facility] Comment on above: Result Comment: Refe rence range defined for non-centrifuged specimen. Performed By: #### U MICAO, UA #### [address] [address] [employer]: Daquan Daniel MD Epithelial cells LM Ql (Urine sed) 0 TO 2 Normal 0-5 [facility] Comment on above: Performed By: #### U MIROSLAVAO, UA #### [facility] [address] [place] [address] 71223 [employer]: Daquan Daniel MD Urine RBC's 2 TO 5 Normal 0-4 [facility] Comment on above: Result Comment: Refe rence range defined for non-centrifuged specimen. Performed By: #### U MIROSLAVAO, UA #### [facility] [address] [place] [address] 41553 [employer]: Daquan Daniel MD Urine WBC's 2 TO 5 Normal 0-5 [facility] Comment on above: Performed By: #### Pricila DARLING UA #### [address] [address] [employer]: Daquan Daniel MD CBC with Diffon 12-20-2023 Abs. Basophil 0.06 k/uL Normal 0.00-0.20 [facility] Comment on above: Performed By: #### B MPX, CDP #### [facility] [address] [place] [address] 32336 [employer]: Daquan Daniel MD Abs.Imm.Granulocyt e 0.09 k/uL Normal 0.00-0.30 [facility] Comment on above: Performed By: #### B MPX, CDP #### [facility] [address] [place] [id number] [employer]: Daquan Daniel MD Abs.Neutrophil (Seg) 13.69 k/uL High 1.50-8.10 [facility] Comment on above: Performed By: #### B MPX, CDP #### [facility] [address] [place] [address] 57938 [employer]: Daquan Daniel MD Basophils/100 WBC (Bld) 0 % Normal 0-2 [facility] Comment on above: Performed By: #### B MPX, CDP #### [address] [address] [employer]: Daquan Daniel MD Eosinophils (Bld) [#/Vol] 0.24 10*3/uL Normal 0.00-0.44 [facility] Comment on above: Performed By: #### B MPX, CDP #### [facility] [address] [place] [address] 6[address]32 [employer]: Daquan Daniel MD Eosinophils/100 WBC (Bld) 1 % Normal 1-4 [facility] Comment on above: Performed By: #### B MPX, CDP #### [address] [address] [employer]: Daquan Daniel MD Erythrocyte distribution width (RBC) [Ratio] 13.2 % Normal 11.8-14.4 [facility] Comment on above: Performed By: #### B MPX, CDP #### [address] [address] [employer]: Daquan Daniel MD Hematocrit (Bld) [Volume fraction] 44.6 % Normal 40.7-50.3 [facility] Comment on above: Performed By: #### B MPX, CDP #### [facility] [address] [place] [address] 89431 [employer]: Daquan Daniel MD Hemoglobin (Bld) [Mass/Vol] 14.6 g/dL Normal 13.0-17.0 [facility] Comment on above: Performed By: #### B MPX, CDP #### [facility] [address] [place] [address] [phone] [employer]: Daquan Daniel MD Immature granulocytes/100 WBC (Bld) 1 % High 0 [facility] Comment on above: Performed By: #### B MPX, CDP #### [address] [address] [employer]: Daquan Daniel MD Lymphocytes (Bld) [#/Vol] 3.05 10*3/uL Normal 1.10-3.70 [facility] Comment on above: Performed By: #### B MPX, CDP #### [place] [address] [employer]: Daquan Daniel MD Lymphocytes/100 WBC (Bld) 17 % Low 24-43 [facility] Comment on above: Performed By: #### B MPX, CDP #### [address] [address] [employer]: Daquan Daniel MD MCH (RBC) [Entitic mass] 29.7 pg Normal 25.2-33.5 [facility] Comment on above: Performed By: #### B MPX, CDP #### [address] [address] [employer]: Daquan Daniel MD MCHC (RBC) [Mass/Vol] 32.7 g/dL Normal 28.4-34.8 [facility] Comment on above: Performed By: #### B MPX, CDP #### [place] [address] [employer]: Daquan Daniel MD MCV (RBC) [Entitic vol] 90.8 fL Normal 82.6-102.9 [facility] Comment on above: Performed By: #### B MPX, CDP #### [address] [address] [employer]: Daquan Daniel MD Monocytes (Bld) [#/Vol] 1.03 10*3/uL Normal 0.10-1.20 [facility] Comment on above: Performed By: #### B MPX, CDP #### [address] [address] [employer]: Daquan Daniel MD Monocytes/100 WBC (Bld) 6 % Normal 3-12 [facility] Comment on above: Performed By: #### B MPX, CDP #### [address] [address] [employer]: Daquan Daniel MD Neutrophil (Seg) 75 % High 36-65 [facility] Comment on above: Performed By: #### B MPX, CDP #### [address] [address] [employer]: Daquan Daniel MD NRBC Automated 0.0 per 100 WBC Normal 0.0 [facility] Comment on above: Performed By: #### B MPX, CDP #### [address] [address] [employer]: Daquan Daniel MD Platelet mean volume (Bld) [Entitic vol] 10.6 fL Normal 8.1-13.5 [facility] Comment on above: Performed By: #### B MPX, CDP #### [address] [address] [employer]: Daquan Daniel MD Platelets (Bld) [#/Vol] 287 10*3/uL Normal 138-453 [facility] Comment on above: Performed By: #### B MPX, CDP #### [facility] [address] [place] [address] 17460 [employer]: Daquan Daniel MD RBC (Bld) [#/Vol] 4.91 10*6/uL Normal 4.21-5.77 [facility] Comment on above: Performed By: #### B MPX, CDP #### [address] [address] [employer]: Daquan Daniel MD WBC (Bld) [#/Vol] 18.2 10*3/uL High 3.5-11.3 [facility] Comment on above: Performed By: #### B MPX, CDP #### [facility] [address] [place] [address] [employer]: Daquan Daniel MD Comp Metabolic Profon 2023 Albumin [Mass/Vol] 3.9 g/dL Normal 3.5-5.2 [facility] Comment on above: Performed By: #### B MPX, CDP #### [facility] [address] [place] [address] [employer]: Daquan Daniel MD Albumin/Glob Ratio 2.0 Normal 1.0-2.5 [facility] Comment on above: Performed By: #### B MPX, CDP #### [facility] [address] [place] [address] [employer]: Daquan Daniel MD Alkaline Phos 79 U/L Normal 40-129 [facility] Comment on above: Performed By: #### B MPX, CDP #### [facility] [address] [place] [address] 79450 [employer]: Daquan Daniel MD ALT [Catalytic activity/Vol] 18 U/L Normal 10-50 [facility] Comment on above: Performed By: #### B MPX, CDP #### [facility] [address] [place] [address]27 [employer]: Daquan Daniel MD Anion gap [Moles/Vol] 9 mmol/L Normal 9-16 [facility] Comment on above: Performed By: #### B MPX, CDP #### [facility] [address] [place] [address] [employer]: Daquan Daniel MD AST [Catalytic activity/Vol] 19 U/L Normal 10-50 [facility] Comment on above: Performed By: #### B MPX, CDP #### [facility] [address] [place] [address] 21268 [employer]: Daquan Daniel MD Bilirubin [Mass/Vol] 1.3 mg/dL High 0.00-1.20 [facility] Comment on above: Performed By: #### B MPX, CDP #### [facility] [address] [place] [address] [employer]: Daquan Daniel MD Calcium [Mass/Vol] 8.3 mg/dL Low 8.6-10.4 [facility] Comment on above: Performed By: #### B MPX, CDP #### [facility] [address] [place] [address] [employer]: Daquan Daniel MD Chloride [Moles/Vol] 106 mmol/L Normal 98-107 [facility] Comment on above: Performed By: #### B MPX, CDP #### [facility] [address] [place] [address] 13984 [employer]: Daquan Daniel MD CO2 [Moles/Vol] 24 mmol/L Normal 20-31 [facility] Comment on above: Performed By: #### B MPX, CDP #### [facility] [address] [place] [address] 10776 [employer]: Daquan Daniel MD Creatinine [Mass/Vol] 1.0 mg/dL Normal 0.70-1.20 [facility] Comment on above: Performed By: #### B MPX, CDP #### [facility] [address] [place] [address] [employer]: Daquan Daniel MD GFR/1.73 sq M.predicted among non-blacks MDRD (S/P/Bld) [Vol rate/Area] 87 mL/min/{1.73_m2} Normal >60 [facility] Comment on above: Result Comment: These results are not intended for use in patients <18 years of age. eGFR results are calculated without a race factor using the 2020 CKD-EPI equation. Careful clinical correlation is recommended, particularly when comparing to results calculated using previous equations. The CKD-EPI equation is less accurate in patients with extremes of muscle mass, extra-renal metabolism of creatine, excessive creatine ingestion, or following therapy that affects renal tubular secretion. Performed By: #### B MPX, CDP #### [facility] [address] [place] [phone] [employer]: Daquan Daniel MD Glucose [Mass/Vol] 116 mg/dL High 74-99 [facility] Comment on above: Performed By: #### B MPX, CDP #### [facility] [address] [place] [address] [employer]: Daquan Daniel MD Potassium [Moles/Vol] 3.9 mmol/L Normal 3.7-5.3 [facility] Comment on above: Performed By: #### B MPX, CDP #### [facility] [address] [place] [address] [employer]: Daquan Daniel MD Protein [Mass/Vol] 6.2 g/dL Low 6.6-8.7 [facility] Comment on above: Performed By: #### B MPX, CDP #### [facility] [address] [place] [phone] [employer]: Daquan Daniel MD Sodium [Moles/Vol] 139 mmol/L Normal 136-145 [facility] Comment on above: Performed By: #### B MPX, CDP #### [facility] [address] [place] [address] [employer]: Daquan Daniel MD Urea nitrogen [Mass/Vol] 12 mg/dL Normal 8-23 [facility] Comment on above: Performed By: #### B MPX, CDP #### [facility] [address] [place] [address] [phone] [employer]: Daquan Daniel MD Lactic Acidon 12-20-2023 Lactic Acid,Whole Bl 1.4 mmol/L Normal 0.7-2.1 [facility] Comment on above: Performed By: #### B MPX, CDP #### [facility] [address] [place], [place] [id number] [employer]: Daquan Daniel MD Magnesiumon 12-20-2023 Magnesium [Mass/Vol] 2.8 mg/dL High 1.6-2.4 [facility] Comment on above: Performed By: #### B MPX, CDP #### [facility] [address] [place], [place] [id number] [employer]: Daquan Daniel MD Phosphorus, Inorg.on 024 Phosphorus, Inorg. 3.2 mg/dL Normal 2.5-4.5 [facility] Comment on above: Performed By: #### B MPX, CDP #### [facility] [address] [place] [address] [employer]: Daquan Daniel MD XR CHEST PORTABLEon 12-20-19 XR CHEST PORTABLE EXAMINATION: ONE XRAY VIEW OF THE CHEST 12/20/2023 11:13 pm COMPARISON: None. HISTORY: ORDERING SYSTEM PROVIDED HISTORY: preop TECHNOLOGIST PROVIDED HISTORY: preop Reason for Exam: pre op upright port FINDINGS: Heart size and pulmonary vasculature are normal. The lungs are clear and normally expanded. Surrounding osseous and soft tissue structures are unremarkable. IMPRESSION: Normal examination. Interpreted by: Pierre Obrien MD Signed by: Pierre Obrien MD 12/20/23 Final result Normal [facility] XR HIP RT 2-3 VIEWS W OR WO PELVISon 08-22-2023 XR HIP RT 2-3 VIEWS W OR WO PELVIS XR HIP RT 2-3 VIEWS W OR WO PELVIS CLINICAL INFORMATION: Right hip pain TECHNIQUE: XR HIP RT 2-3 VIEWS W OR WO PELVIS 3 views right hip were obtained. Moderate right hip osteoarthritic changes noted. Is no acute fracture. No malalignment. IMPRESSION: Moderate osteoarthritis. Finalized by Mumtaz Ortega MD on 08/22/2023 8:33 AM Normal [facility] XR KNEE LT MIN 4 VWSon 08-21 XR KNEE LT MIN 4 VWS XR KNEE LT MIN 4 VWS CLINICAL INFORMATION: Left knee pain, unspecified chronicity TECHNIQUE: XR KNEE LT MIN 4 VWS 4 views left knee were obtained. Mild tricompartmental osteoarthritic changes noted. Is no joint effusion. No evidence of fracture. IMPRESSION: Osteoarthritis. Finalized by Mumtaz Ortega MD on 08/22/2023 8:35 AM Normal [facility] CBC AND AUTO DIFFon 08-21-19 24 ABSOLUTE BASOPHIL 0.1 X10E9/L Normal 0.0-0.2 [facility] Comment on above: Performed By: #### 8 2477-1, CMP, CBCA #### [facility] ([id number]) [address], [address] [place] [address] ABSOLUTE NEUTROPHIL 5.6 X10E9/L Normal 1.5-6.6 [facility] Comment on above: Performed By: #### 8 2477-1, CMP, CBCA #### [facility] ([id number]) [address], [address] [place] [address] Basophils/100 WBC (Bld) 0.6 % Normal [facility] Comment on above: Performed By: #### 8 2477-1, CMP, CBCA #### [facility] ([id number]) [address], [address] [place] [address] Eosinophils (Bld) [#/Vol] 0.3 10*3/uL Normal 0.0-0.4 [facility] Comment on above: Performed By: #### 8 2477-1, CMP, CBCA #### [facility] ([id number]) [address], [address] [place] [address] Eosinophils/100 WBC (Bld) 3.6 % Normal [facility] Comment on above: Performed By: #### 8 2477-1, CMP, CBCA #### [facility] ([id number]) [address], [address] [place] [address] Erythrocyte distribution width (RBC) [Ratio] 13.3 % Normal 11.5-15.0 [facility] Comment on above: Performed By: #### 8 2477-1, CMP, CBCA #### [facility] ([id number]) [address], [facility] [address] [place] [address] Hematocrit (Bld) [Volume fraction] 45.2 % Normal 39-49 [facility] Comment on above: Performed By: #### 8 2477-1, CMP, CBCA #### [facility] ([id number]) [address], [address] [place] [address] Hemoglobin (Bld) [Mass/Vol] 15.2 g/dL Normal 13.0-17.0 [facility] Comment on above: Performed By: #### 8 2477-1, CMP, CBCA #### [facility] ([id number]) [address], [facility] [address] [place] [address] Lymphocytes (Bld) [#/Vol] 2.7 10*3/uL Normal 1.0-3.5 [facility] Comment on above: Performed By: #### 8 2477-1, CMP, CBCA #### [facility] ([id number]) [address], [address] [place] [address] Lymphocytes/100 WBC (Bld) 28.2 % Normal [facility] Comment on above: Performed By: #### 8 2477-1, CMP, CBCA #### [facility] ([id number]) [address], [address] [place] [address] MCH (RBC) [Entitic mass] 30.0 pg Normal 27-34 [facility] Comment on above: Performed By: #### 8 2477-1, CMP, CBCA #### [facility] ([id number]) [address], [address] [place] [address] MCHC (RBC) [Mass/Vol] 33.7 g/dL Normal 32-36 [facility] Comment on above: Performed By: #### 8 2477-1, CMP, CBCA #### [facility] ([id number]) [address], [address] [place] [address] MCV (RBC) [Entitic vol] 89 fL Normal 80-100 [facility] Comment on above: Performed By: #### 8 2477-1, CMP, CBCA #### [facility] ([id number]) [address], [address] [place] [address] Monocytes (Bld) [#/Vol] 0.8 10*3/uL Normal 0-0.9 [facility] Comment on above: Performed By: #### 8 2477-1, CMP, CBCA #### [facility] ([id number]) [address] [place] [address] Monocytes/100 WBC (Bld) 8.6 % Normal [facility] Comment on above: Performed By: #### 8 2477-1, CMP, CBCA #### [facility] ([id number]) [address], [address] [place] [address] Neutrophils/100 WBC (Bld) 59.0 % Normal [facility] Comment on above: Performed By: #### 8 2477-1, CMP, CBCA #### [facility] ([id number]) [address], [address] [place] [address] Platelet mean volume (Bld) [Entitic vol] 9.3 fL Normal 7-12 [facility] Comment on above: Performed By: #### 8 2477-1, CMP, CBCA #### [facility] ([id number]) [address], [address] [place] [address] Platelets (Bld) [#/Vol] 280 10*3/uL Normal 150-450 [facility] Comment on above: Performed By: #### 8 2477-1, CMP, CBCA #### [facility] ([id number]) [address], [address] [place] [address] RBC COUNT 5.07 X10E12/L Normal 4.10-5.70 [facility] Comment on above: Performed By: #### 8 2477-1, CMP, CBCA #### [facility] ([id number]) [address] [place] [address] WBC (Bld) [#/Vol] 9.4 10*3/uL Normal 4.0-11.0 [facility] Comment on above: Performed By: #### 8 2477-1, CMP, CBCA #### [facility] ([id number]) [address], [address] [place] [address] COMPREHENSIVE METABOLIC PANE Won 08-21-2023 Albumin [Mass/Vol] 4.3 g/dL Normal 3.2-5.3 [facility] Comment on above: Performed By: #### 8 2477-1, CMP, CBCA #### [facility] ([id number]) [address], [address] [place] [address] ALP [Catalytic activity/Vol] 80 U/L Normal 39-130 [facility] Comment on above: Performed By: #### 8 2477-1, CMP, CBCA #### [facility] ([id number]) [address], [address] [place] [address] ALT [Catalytic activity/Vol] 16 U/L Normal 0-40 [facility] Comment on above: Performed By: #### 8 2477-1, CMP, CBCA #### [facility] ([id number]) [address], [address] [place] [address] Anion gap [Moles/Vol] 8 mmol/L Normal 5-15 [facility] Comment on above: Performed By: #### 8 2477-1, CMP, CBCA #### [facility] ([id number]) [address], [address] [place] [address] AST [Catalytic activity/Vol] 18 U/L Normal 0-41 [facility] Comment on above: Performed By: #### 8 2477-1, CMP, CBCA #### [facility] ([id number]) [address], [address] [place] [address] Bilirubin [Mass/Vol] 0.8 mg/dL Normal 0.3-1.2 [facility] Comment on above: Performed By: #### 8 2477-1, CMP, CBCA #### [facility] ([id number]) [address], [address] [place] [address] Calcium [Mass/Vol] 9.3 mg/dL Normal 8.5-10.5 [facility] Comment on above: Performed By: #### 8 2477-1, CMP, CBCA #### [facility] ([id number]) [address], [address] [place] [address] Chloride [Moles/Vol] 102 mmol/L Normal 98-109 [facility] Comment on above: Performed By: #### 8 2477-1, CMP, CBCA #### [facility] ([id number]) [address], [address] [place] [address] CO2 [Moles/Vol] 30 mmol/L Normal 22-32 [facility] Comment on above: Performed By: #### 8 2477-1, CMP, CBCA #### [facility] ([id number]) [address], [address] [place] [address] Creatinine [Mass/Vol] 0.76 mg/dL Normal 0.60-1.30 [facility] Comment on above: Result Comment: METH OD TRACEABLE TO IDMS STANDARD Performed By: #### 8 2477-1, CMP, CBCA #### [facility] ([id number]) [address], [facility] [address] [place] [address] eGFR (CKD-EPI) NON-RACE DEPENDENT >90 Normal >59 [facility] Comment on above: Result Comment: Reported eGFR is based on the CKD-EPI 2020 equation that does not use a race coefficient. Performed By: #### 8 2477-1, CMP, CBCA #### [facility] ([id number]) [address], [facility] [address] [place] [address] Glucose [Mass/Vol] 103 mg/dL High 65-99 [facility] Comment on above: Performed By: #### 8 2477-1, CMP, CBCA #### [facility] ([id number]) [address], [facility] [address] [place] [address] Potassium [Moles/Vol] 3.8 mmol/L Normal 3.5-5.0 [facility] Comment on above: Performed By: #### 8 2477-1, CMP, CBCA #### [facility] ([id number]) [address], [facility] [address] [place] [address] Protein [Mass/Vol] 7.2 g/dL Normal 6.0-8.0 [facility] Comment on above: Performed By: #### 8 2477-1, CMP, CBCA #### [facility] ([id number]) [address], [facility] [address] [place] [address] Sodium [Moles/Vol] 140 mmol/L Normal 134-146 [facility] Comment on above: Performed By: #### 8 2477-1, CMP, CBCA #### [facility] ([id number]) [address], [address] [place] [address] Urea nitrogen [Mass/Vol] 15 mg/dL Normal 5-27 [facility] Comment on above: Performed By: #### 8 2477-1, CMP, CBCA #### [facility] ([id number]) [address], [address] [place] [address] ESR Photometric method (Bld) [Velocity]on 08-21-2023 ESR, ERYTHROCYTE SEDIMENTATION RATE 4 mm/h Normal 0-20 [facility] Comment on above: Performed By: #### 8 2477-1, CMP, CBCA #### [facility] ([id number]) [address], [address] [place] [address] CTA HEAD WO W CONon 07-24-19 CTA HEAD WO W CON CTA HEAD WO W CON, CTA NECK WO W CON INDICATION:61 years old; dizziness . Sudden onset. TECHNIQUE: CT angiogram of the head and neck was performed. Coronal, sagittal and 3-D reformats were created and reviewed. IV contrast Omnipaque 350 100mL. No complications . Carotid stenosis measurements were made according to the NASCET criteria. Ionizing radiation dose reduced via iterative reconstruction/FBP blend and body size kV/mA adjustment. COMPARISON: Head CT dated 07/22/2022 at 8:22 PM. FINDINGS: NECK FINDINGS: AORTIC ARCH: Normal origin of the innominate, left common carotid and left subclavian arteries. ANTERIOR CIRCULATION: Carotid arteries are patent. Carotid bifurcations are patent. Cervical ICA are patent up to the skull base. POSTERIOR CIRCULATION: The V1, V2, and V3 segments of vertebral arteries are bilaterally patent. DEVELOPMENTAL ANOMALIES: None. OTHER: No thyroid nodule or adenopathy. Cervical spondylosis.. HEAD BRAIN: Please see the report of the noncontrast head CT. ANTERIOR CIRCULATION: The intrapetrous, intracavernous, and supraclinoid ICA are patent. Intracranial termini are patent. ARELI and MCA patent bilaterally. No stenosis. No intraluminal thrombus. No large vessel occlusion. No aneurysm is seen. Distal distributions are bilaterally symmetric. POSTERIOR CIRCULATION: The V4 segments are patent. Basilar artery and basilar tip are patent. PICA patent bilaterally. SCA and TOOL SPECIALIST patent bilaterally. Distal TOOL SPECIALIST distributions are symmetric. DEVELOPMENTAL ANOMALIES: None. OTHER: No pathologic enhancement is seen. Although contrast is seen within the venous structures, the study is not optimized for intracranial venous evaluation and cannot exclude veno-occlusive disease. IMPRESSION: 1. Intracranial and extracranial vessels demonstrate no stenosis, thrombus, dissection, aneurysm, or large vessel occlusion. 2. No pathologic enhancement is seen. Electronically authenticated by: MIGUEL LI Date: 2022-07-23 01:[address] [facility] Covid-19 PCR (CVDTBH)on 07-09 SARS-CoV-2 (COVID-19) RNA ELOISA+probe Ql (Unsp spec) Not detected Normal NOT DETECTED [facility] Comment on above: Result Comment: When diagnostic testing is negative, the possibility of a false negative should be considered in the context of a patient's recent exposures and the presence of clinical signs and symptoms consistent with SARS-CoV-2. This test is not yet approved or cleared by the [place] FDA. When there are no FDA-approved or cleared tests available, and other criteria are met, FDA can make tests available under an emergency access mechanism called an Emergency Use Authorization (EUA). The EUA for this test is supported by the [employer] Tester of Health and Human Service's declaration that circumstances exist to justify the emergency use of in vitro diagnostics for the detection and/or diagnosis of the virus that causes COVID-19. This EUA will remain in effect for the duration of the COVID-19 declaration justifying emergency of IVDs, unless it is terminated or revoked by the FDA (after which the test may no longer be used). Performed By: #### C VDTB #### [facility] [address] [place] [address] Dr. Armando Addison CBC AUTO DIFFon 07-22-2022 BASO # 0.1 103/ul Normal 0.0-0.[address] [facility] Comment on above: Performed By: #### C BC #### [facility] [address] [place] [address] Dr. Armando Addison Basophils/100 WBC (Bld) 0.4 % Normal 0.2-2.0 [facility] Comment on above: Performed By: #### C BC #### [facility] [address] [place] [address] Dr. Armando Addison EO # 0.2 103/ul Normal 0.0-0.7 [facility] Comment on above: Performed By: #### C BC #### [facility] [address] [place] [address] Dr. Armando Addison Eosinophils/100 WBC (Bld) 1.7 % Normal 0.9-7.0 [facility] Comment on above: Performed By: #### C BC #### [facility] [address] [place] [address] Dr. Armando Addison Erythrocyte distribution width (RBC) [Ratio] 12.7 % Normal 11.0-15.0 [facility] Comment on above: Performed By: #### C BC #### [facility] [address] [place] [address] Dr. Armando Addison Hematocrit (Bld) [Volume fraction] 43.6 % Normal 42.0-54.0 [facility] Comment on above: Performed By: #### C BC #### [facility] [address] [place] [address] Dr. Armando Addison Hemoglobin (Bld) [Mass/Vol] 15.1 g/dL Normal 14.0-18.0 [facility] Comment on above: Performed By: #### C BC #### [facility] [address] [place] [address] Dr. Armando Addison IG # 0.05 10e3/ul Critically high 0.00-0.03 [facility] Comment on above: Performed By: #### C BC #### [facility] [address] [place] [address] Dr. Armando Addison IG % 0.4 % Normal 0.0-0.[address] [facility] Comment on above: Performed By: #### C BC #### [facility] [address] [place] [address] Dr. Armando Addison LYMPH # 1.4 103/ul Normal 1.2-3.[address] [facility] Comment on above: Performed By: #### C BC #### [facility] [address] [place] [address] Dr. Armando Addison Lymphocytes/100 WBC (Bld) 10.2 % Critically low 20.5-60.[address] [facility] Comment on above: Performed By: #### C BC #### [facility] [address] [place] [address] Dr. Armando Addison MANUAL DIFF REQ NO Normal [facility] Comment on above: Performed By: #### C BC #### [facility] [address] [place] [address] Dr. Armando Addison MCH (RBC) [Entitic mass] 29.8 pg Normal 25.9-34.[address] [facility] Comment on above: Performed By: #### C BC #### [facility] [address] [place] [address] Dr. Armando Addison MCHC (RBC) [Mass/Vol] 34.6 g/dL Normal 29.9-35.[address] [facility] Comment on above: Performed By: #### C BC #### [facility] [address] [place] [address] Dr. Armando Addison MCV (RBC) [Entitic vol] 86.0 fL Normal 80.0-94.[address] [facility] Comment on above: Performed By: #### C BC #### [facility] [address] [place] [address] Dr. Armando Addison MONO # 0.9 103/ul Critically high 0.3-0.8 [facility] Comment on above: Performed By: #### C BC #### [facility] [address] [place] [address] Dr. Armando Addison Monocytes/100 WBC (Bld) 6.6 % Normal 1.7-12.[address] [facility] Comment on above: Performed By: #### C BC #### [facility] [address] [place] [address] Dr. Armando Addison NEUT # 10.8 103/ul Critically high 1.4-6.[address] [facility] Comment on above: Performed By: #### C BC #### [facility] [address] [place] [address] Dr. Armando Addison Neutrophils/100 WBC (Bld) 80.7 % Critically high 43.0-75.0 [facility] Comment on above: Performed By: #### C BC #### [facility] [address] [place] [address] Dr. Armando Addison Platelet mean volume (Bld) [Entitic vol] 10.4 fL Normal 9.5-13.[address] [facility] Comment on above: Performed By: #### C BC #### [facility] [address] [place] [address] Dr. Armando Addison PLT 308 103/ul Normal 150-450 [facility] Comment on above: Performed By: #### C BC #### [facility] [address] [place] [address] Dr. Armando Addison RBC 5.07 106/ul Normal 4.70-6.[address] [facility] Comment on above: Performed By: #### C BC #### [facility] [address] [place] [address] Dr. Armando Addison WBC 13.4 103/ul Critically high 4.0-11.[address] [facility] Comment on above: Performed By: #### C BC #### [facility] [address] [place] [address] HEAD WO CONon 07-22-2022 CT HEAD WO CON EXAMINATION: CT HEAD WO CON, 07/22/2022 7:53 PM EDT HISTORY: dizziness COMPARISON: None. TECHNIQUE: CT scan of the head was performed without IV contrast. CT dose reduction technique was used, including Automated Exposure Control. FINDINGS: BRAIN PARENCHYMA/CSF SPACES: Ventricles are normal in size for age. There is no hemorrhage, mass effect or midline shift. There are no other significant findings. PARANASAL SINUSES: Clear. SKULL BASE AND CALVARIUM: Normal. EXTRACRANIAL SOFT TISSUES: Normal. IMPRESSION: No acute bony abnormality. Electronically authenticated by: GILDA JOHN Date: 2022-07-22 20:[address] [facility] PROF CHEM 8 (BAS METB)on Anion gap [Moles/Vol] 11.2 mmol/L Normal [facility] Comment on above: Performed By: #### B MP #### [facility] [address] [address] [address] Armando Addison Calcium [Mass/Vol] 9.0 mg/dL Normal 8.5-10.1 [facility] Comment on above: Performed By: #### B MP #### [facility] [address] [address] [address] Armando Addison Chloride [Moles/Vol] 104 mmol/L Normal 98-107 [facility] Comment on above: Performed By: #### B MP #### [facility] [address] [address] [address] Armando Addison CO2 [Moles/Vol] 25.6 mmol/L Normal 21.0-32.0 [facility] Comment on above: Performed By: #### B MP #### [facility] [address] [address] [address] Armando Addison Creatinine [Mass/Vol] 0.71 mg/dL Normal 0.70-1.30 [facility] Comment on above: Performed By: #### B MP #### [facility] [address] [address] [address] Armando Addison EGFR-AF CITIZEN OF [place] >60 Normal >=60 [facility] Comment on above: Performed By: #### B MP #### [facility] [address] [address] [address] Armando Addison EGFR-NON AF CITIZEN OF [place] >60 Normal >=60 [facility] Comment on above: Performed By: #### B MP #### [facility] [address] [address] [address] Armando Addison Glucose [Mass/Vol] 152 mg/dL Critically high 74-106 [facility] Comment on above: Performed By: #### B MP #### [facility] [address] [address] [address] Armando Addison Potassium [Moles/Vol] 3.8 mmol/L Normal 3.5-5.1 [facility] Comment on above: Performed By: #### B MP #### [facility] [address] [address] [address] Armando Addison Sodium [Moles/Vol] 137 mmol/L Normal 136-145 [facility] Comment on above: Performed By: #### B MP #### [facility] [id number] Armando Addison Urea nitrogen [Mass/Vol] 12.0 mg/dL Normal 7.0-18.0 [facility] Comment on above: Performed By: #### B MP #### [facility] [address] [address] [address] Armando Addison Urea nitrogen/Creatinin e [Mass ratio] 16.9 mg/mg Normal [facility] Comment on above: Performed By: #### B MP #### [facility] [address] [place] [address] Dr. Armando Addison COVID/FLU/RSV RT-PCRon 07-03 SARS-CoV-2 (COVID-19) RNA ELOISA+probe Ql (Unsp spec) Negative [facility] Other COVID/FLU/RSV RT-PCR Negative [facility] Other URIC ACID SERUMon 11-16-2021 Urate [Mass/Vol] 4.7 mg/dL Normal 3.5-7.2 [facility] Comment on above: Performed By: #### U NILESH #### [facility] [address] [place] [address] Dr. Armando Addison XR HAND LT MIN 3Von 11-17-19 22 XR HAND LT MIN 3V XR HAND LT MIN 3V 11/16/2021 2:29 AM EDT CLINICAL INDICATION: Pain with after minor trauma COMPARISON: None TECHNIQUE: 3 views of the left hand. FINDINGS: The bones are intact. The alignment is anatomic. There are mild degenerative changes of the joints. The soft tissues are grossly unremarkable. IMPRESSION: No acute osseous abnormality of the left hand. Electronically authenticated by: SUSAN MADRIGAL Date: 2021-11-16 03:[address] [facility] Vital Signs Date Time Vital Sign Value Performing Clinician Facility 07-03-2022 17:45-0500 Body height 177.8 cm Rosa Laird Other [facility] Other 07-03-2022 17:45-0500 Body mass index (BMI) [Ratio] 33.72 kg/m2 Rosa Laird Other [facility] Other 07-03-2022 17:45-0500 Body temperature 101.1 [degF] Rosa Laird Other [facility] Other 07-03-2022 17:45-0500 Body weight 106.6 kg Rosa Laird Other [facility] Other 07-03-2022 17:45-0500 Diastolic blood pressure 73 mm[Hg] Rosa Laird Other [facility] Other 07-03-2022 17:45-0500 Respiratory rate 22 /min Rosa Laird Other [facility] Other 07-03-2022 17:45-0500 SaO2% (BldA) [Mass fraction] 93 % Rosa Laird Other [facility] Other 07-03-2022 17:45-0500 Systolic blood pressure 123 mm[Hg] Rosa Laird Other [facility] Other Encounters Encounter Date Encounter Type Care Provider Facility Start: 12-20-2023 End: 12-24-2023 Evaluation and management of inpatient ISRA GONZALEZRMERHORN [facility] Start: 08-21-2023 End: 08-22-2023 ambulatory ISRA [facility] Start: 08-21-2023 Encounter for genera l adult medical examination without abnormal findings [facility] Start: 07-22-2022 End: 07-23-[address] ISRA RIOS Facility:[facility] Start: 07-03-2022 End: 07-03-2022 ambulatory Rosa Laird Other [facility] Other Start: 07-03-2022 Office outpatient ne w 30 minutes Rosa Laird [facility] Start: 11-16-2021 End: 11-16-[address] AISSATOU DUKE Facility:[facility] Payers Date Payer Category Payer Private Health Insurance [id number] 1960 Unknown [id number] 1960 Unknown [id number] 1959 Unknown [id number] 1959 Unknown [id number] 1959 Unknown [id number] 1959 Unknown [id number] 1960 [facility] [id number] 1960 [employer] ( and others) [id number] 19 Social History Date Type Detail Facility Sex Assigned At [facility] Other Evaluation note 07-03-2022 Note Date & Type Note Facility 07-03-2022 Evaluation note Encounter Date Diagnosis Assessment Notes Jun, Contact with and (suspected) exposure to other viral communicable diseases (ICD-10 - Z20.828) Jun, Viral URI (ICD-10 - J06.9) Symptoms appear viral today. Bacteria infections take several days to weeks of symptoms to develop. Use saline nasal spray before prescription one and you have better results. Recommend OTC medications such as Mucinex DM, Delsym, Cepocal Lozenges Continue tylenol/ibuprof en for general discomfort. Encourage fluids. Symptoms should improve within the next 10-14 days. If no improvement of symptoms in 14 days call primary care provider to discuss antibiotic therapy [facility] Other History general Narrative - Reported Note Date & Type Note Facility History general Narrative - Reported Type Medical History Degenerate hip [facility] Other Summary Purpose Family History No Family History Records FoundNo Family History Records FoundNo Family History Records Found Advance Directives No Advanced Directives Records FoundNo Advanced Directives Records FoundNo Advanced Directives Records Found Additional Source Comments REASON FOR VISIT (unrecogniz ed section and content) HEADACHE, CHILLS (unrecognized sect ion and content) No Status Records FoundNo Status Records FoundNo Status Records Found INFORMATION SOURCE (unrecogn ized section and content) DATE CREATED AUTHOR 07/25/2022 [facility] DATE CREATED AUTHOR AUTHOR'S ORGANIZ ATION 08/22/2023 [facility] DATE CREATED AUTHOR AUTHOR'S ORGANIZ ATION 01/04/2024 [facility] FOR RECORDS PERTAINING TO PATIENTS WHO ARE OR HAVE BEEN ENROLLED IN A CHEMICAL DEPENDENCY/SUBSTANCEABUSE PROGRAM, SOME INFORMATION MAY BE OMITTED. This clinical summary was aggregated from multiple sources. Caution should be exercised in using it in the provision of clinical care. This summary normalizes information from multiple sources, and as a consequence, information in this document may materially change the coding, format and clinical context of patient data. In addition, data may be omitted in some cases. CLINICAL DECISIONS SHOULD BE BASED ON THE PRIMARY CLINICAL RECORDS. [employer] provides no warranty or guarantee of the accuracy or completeness of information in this document.
[2024-01-11 12:39] LABS: Hematocrit 43.3 % (42.0-54.0); Hemoglobin 14.4 g/dL (14.0-18.0); Mean Corpuscular HGB Conc 33.3 g/dL (29.9-35.2); Mean Corpuscular Hemoglobin 29.4 pg (25.9-34.0); Mean Corpuscular Volume 88.4 fL (80.0-94.0); Platelet Count 375 10^3/uL (150-450); Red Cell Distribution Width 12.7 % (11.0-15.0); White Blood Count 25.4 10^3/uL (4.0-11.0)
[2024-01-11 13:00] LABS: Alanine Aminotransferase 24 U/L (16-63); Albumin Globulin Ratio 0.9; Albumin Level 3.5 g/dL (3.4-5.0); Alkaline Phosphatase 96 U/L (46-116); Anion Gap 14.8; Aspartate Amino Transferase 15 U/L (15-37); BUN Creatinine Ratio 12.3; Bilirubin Total 0.9 mg/dL (0.2-1.0); Carbon Dioxide 24.7 mmol/L (21.0-32.0); Chloride 99 mmol/L (98-107); Estimated GFR (African America >60 (>=60); Estimated GFR (Non-African Ame >60 (>=60); Globulin 3.9 g/dL; Glucose 116 mg/dL (74-106); Potassium 3.5 mmol/L (3.5-5.1); Sodium 135 mmol/L (136-145); Total Protein 7.4 g/dL (6.4-8.2)
[2024-01-11 13:03] LABS: Internal Control Within Normal Limits; SARS-CoV-2 Ag NEGATIVE (NEGATIVE)
--- NOTE | 2024-01-11 13:09 | CT_ITS ---
[address] [address] Patient Name: JENI TRENT MRN: [id number] date: 1960 Sex: M Assigned Patient Location: ER Current Patient Location: Accession/Order Number: [id number] Exam Date: 01/11/2024 14:32 Report Date: 01/11/2024 16:04 At the request of: MANSI PADILLA Procedure: CT abdomen pelvis w con EXAM: CT abdomen pelvis w con HISTORY: fever and post hernia repair surgery COMPARISON: 12/20/2023 TECHNIQUE: CT of the abdomen and pelvis with intravenous contrast. Dose reduction techniques were achieved by using automated exposure control and/or adjustment of mA and/or kV according to patient size and/or use of iterative reconstruction technique. FINDINGS: TUBES AND IMPLANTS: None. LOWER CHEST: Small to moderate hiatal hernia ABDOMEN and PELVIS ABDOMINAL WALL AND SOFT TISSUES: Redemonstration of bilateral inguinal hernias now with development of focal fluid collections measuring 9.1 by 8.8 cm on the left and 3.6 by 3.8 cm on the right. No bowel loops are seen within the inguinal hernias. There is a moderate left hydrocele. BONES: Multilevel degenerative changes of the spine. No suspicious lesions. ARTERIES: Mild aortoiliac atherosclerosis without aneurysm VEINS: Unremarkable. LYMPH NODES: Unremarkable. PERITONEUM/ RETROPERITONEUM: Unremarkable. BOWEL: No obstruction APPENDIX: Unremarkable LIVER: The liver is enlarged measuring 19.8 centimeters with steatosis. GALLBLADDER: Redemonstration of irregular wall thickening and mild calcification with suggestion of fundal stones. BILE DUCTS: Not dilated SPLEEN: Unremarkable. PANCREAS: Unremarkable. ADRENALS: Unremarkable. KIDNEYS/ URETERS: No stones or hydronephrosis. Small left renal cyst REPRODUCTIVE ORGANS: Mild prostatomegaly with hypertrophy of the median lobe. URINARY BLADDER: Mild diffuse wall thickening CT/CT abdomen pelvis w con IMPRESSION: 1. Redemonstration of bilateral inguinal hernias now with development of focal fluid collections measuring 9.1 by 8.8 cm on the left and 3.6 by 3.8 cm on the right. This may represent postsurgical seromas or abscesses. No bowel loops are seen within the inguinal hernias and there is no evidence of bowel obstruction. There is a moderate left hydrocele. 2. Mild diffuse wall thickening of the bladder, correlate for cystitis. 3. Hepatomegaly with probable steatosis. 4. Mild prostatomegaly. 5. Redemonstration of irregular wall thickening calcification of the gallbladder as well as congestion of fundal stones. Follow-up ultrasound in 6 months is recommended. 6. Small to moderate hiatal hernia. Electronically authenticated by: SUSAN MADRIGAL Date: 01/11/2024 16:04
--- NOTE | 2024-01-11 13:11 | XR_ITS ---
The [address] [address] Patient Name: JENI TRENT MRN: [id number] date: 1960 Sex: M Assigned Patient Location: ER Current Patient Location: ER Accession/Order Number: [id number] Exam Date: 01/11/2024 14:50 Report Date: 01/11/2024 15:10 At the request of: MANSI PADILLA Procedure: XR chest 1V EXAM: XR chest 1V at 1442 hours HISTORY: infection COMPARISON: None. TECHNIQUE: AP upright portable chest x-ray FINDINGS: The heart is not enlarged and the vasculature is not distended. Slight elevation of the right hemidiaphragm is noted. No acute infiltrate, effusion or pneumothorax is identified. The osseous structures are grossly intact. XR/XR chest 1V IMPRESSION: No apparent acute infiltrate or evidence of cardiac decompensation. Electronically authenticated by: ELIZABETH BUTT Date: 01/11/2024 15:10
[2024-01-11 13:13] LABS: Band Neutrophils Absolute 0.3 10^3/uL (0.0-0.3); Lymphocytes Absolute Manual 2.54 10^3/uL (1.20-3.80); Metamyelocytes Absolute Manual 0.76; Monocytes Absolute Manual 2.03 10^3/uL (0.30-0.80); Segmented Neut Absolute Manual 19.81 10^3/uL (1.4-6.5)
[2024-01-11 13:40] LABS: Lactate/Lactic Acid 0.9 mmol/L (0.4-2.0)
[2024-01-11 14:06] LABS: Bilirubin Urine NEGATIVE (NEGATIVE); Blood Urine MODERATE (NEGATIVE); Clarity Urine SL CLOUDY (CLEAR); Color Urine BROWN (YELLOW); Glucose Urine UA NEGATIVE (NEGATIVE); Ketones Urine NEGATIVE (NEGATIVE); Leukocyte Esterase Urine MODERATE (NEGATIVE); Nitrite Urine POSITIVE (NEGATIVE); Protein Urine 100 mg/dL (NEG/TRACE); Specific Gravity Urine 1.015 (1.005-1.025); Urobilinogen Urine 0.2 EU/dL (0.2-1.0)
[2024-01-11 14:38] LABS: Urine Microscopic Indicated YES
[2024-01-11 14:39] LABS: Bacteria Urine LARGE #/HPF (NONE SEEN); Cast Seen? NONE SEEN #/LPF (NONE SEEN); Crystals Seen? None Seen #/HPF (None Seen); Mucus Urine TRACE (NONE SEEN); Squamous Epithelial Cell Urine FEW #/LPF (NONE/RARE); Transitional Epi Cells Urine RARE #/LPF (NONE SEEN); Urine Culture Indicated YES; WBC Urine 75-100 #/HPF (NONE SEEN)
--- NOTE | 2024-01-11 16:51 | ED_ITS ---
HPI - Fever General Chief Complaint: Fever Stated Complaint: fever Time Seen by Provider: 01/11/24 12:07 Source: patient Mode of arrival: walk-in Limitations: no limitations History of Present Illness HPI Narrative: The patient have history of inguinal surgery in December 19 was done [facility], presenting to the ER after he has been having fever for the last 24 hours with no known source, the patient also complaining of chills, he initially did not mention any swelling but after speaking with him about the surgery that he had he mentioned that his doctor told him that he usually will have some swelling in the area and he still have some left inguinal swelling since the surgery. The patient denies any nausea vomiting or any dizziness Related Data Home Medications ?Medication ?Instructions ?Recorded ?Confirmed methocarbamol 750 mg tablet mg 01/11/24 ondansetron 4 mg disintegrating mg 01/11/24 tablet oxycodone 5 mg tablet mg 01/11/24 sennosides 8.6 mg-docusate sodium PO 01/11/24 50 mg tablet (Senexon-S) Allergies Allergy/AdvReac Type Severity Reaction Status Date / Time No Known Drug Allergies Allergy Verified 01/11/24 11:56 Review of Systems ROS Status of ROS 10 or more systems reviewed and unremark able except as noted in history and below Exam Narrative Exam Narrative: Nurses notes and vital signs reviewed and patient is not hypoxic. General: Well-appearing and in no apparent distress. Skin: Warm, dry, no pallor noted. No rash. Head: Normocephalic, atraumatic. Neck: Supple, non-tender. Eye: Pupils are equal, round and EOMI. No scleral icterus. Ears, Nose, Mouth, and Throat: TM are clear, no nasal mucosal hypertrophy. Oral mucosa is moist, no posterior oropharynx erythema, uvula is mid-line Cardiovascular: Regular Rate and Rhythm without murmur, gallop or rub. Respiratory: No accessory muscle use or respiratory distress. Lungs are clear to auscultation, no wheezing, rales or rhonchi Chest Wall: no tenderness Back: No midline thoracic or lumbar vertebral tenderness. No CVA tenderness Musculoskeletal: normal ROM, no calf or popliteal tenderness, no lower extremity edema/swelling GI: Abdomen is soft, non-distended. Normal bowel sounds. No masses appreciated. No tenderness to palpation. No rebound, guarding, or rigidity noted. There is a laparoscopic surgery wound that is healing at the periumbilical area On examination of the inguinal area the patient have a significant inguinal hernia that is nonreducible and fixed,, not tender on examination and not soft, fluid collection like The patient have no testicular tenderness and that he had no rashes or scrotal skin changes Neurological: A&O x4. No cranial nerve dysfunction observed. No truncal ataxia. Moves all extremities. Sensation intact. Psychiatric: Cooperative and interactive. Normal mood and affect. Constitutional Vital Signs, click to edit/add: Last Vital Signs Temp 103.1 F H 01/11/24 17:52 Pulse 90 01/11/24 16:10 Resp 18 01/11/24 16:10 BP 133/69 01/11/24 16:10 Pulse Ox 98 01/11/24 16:10 O2 Del Method Room Air 01/11/24 11:57 Course Vital Signs Vital signs: Vital Signs Temperature 99.0 F 01/11/24 11:57 Pulse Rate 110 H 01/11/24 11:57 Respiratory Rate 18 01/11/24 11:57 Blood Pressure 154/101 H 01/11/24 11:57 Pulse Oximetry 95 01/11/24 11:57 Oxygen Delivery Method Room Air 01/11/24 11:57 Temperature 103.1 F H 01/11/24 17:52 Pulse Rate 90 01/11/24 16:10 Respiratory Rate 18 01/11/24 16:10 Blood Pressure 133/69 01/11/24 16:10 Pulse Oximetry 98 01/11/24 16:10 Oxygen Delivery Method Room Air 01/11/24 11:57 MDM - Fever MDM Narrative Medical decision making narrative: The patient blood workup shows leukocytosis and the lactic acid is not elevated Urinalysis positive for UTI Chemistry is not showing any acute pathology COVID is negative Chest x-ray showed no acute pathology The patient CAT scan of the abdomen with IV contrast shows: 1. Redemonstration of bilateral inguinal hernias now with development of focal fluid collections measuring 9.1 by 8.8 cm on the left and 3.6 by 3.8 cm on the right. This may represent postsurgical seromas or abscesses. No bowel loops are seen within the inguinal hernias and there is no evidence of bowel obstruction. There is a moderate left hydrocele. 2. Mild diffuse wall thickening of the bladder, correlate for cystitis. 3. Hepatomegaly with probable steatosis. 4. Mild prostatomegaly. 5. Redemonstration of irregular wall thickening calcification of the gallbladder as well as congestion of fundal stones. Follow-up ultrasound in 6 months is recommended. 6. Small to moderate hiatal hernia. Patient case was discussed with Dr. Vicente in [facility] and general surgery service and she accepted the patient to be transferred ER to ER Dr. Hudson accepted the patient and the patient will be transferred Patient already had a blood culture obtained he was covered with Vanco and Zosyn for possible infection Lab Data Labs: Lab Results 01/11/24 01/11/24 01/11/24 Range/Units 12:22 12:25 13:55 WBC 25.4 H (4.0-11.0) 10^3/uL RBC 4.90 (4.70-6.10) 10^6/uL Hgb 14.4 (14.0-18.0) g/dL Hct 43.3 (42.0-54.0) % MCV 88.4 (80.0-94.0) fL MCH 29.4 (25.9-34.0) pg MCHC 33.3 (29.9-35.2) g/dL RDW 12.7 (11.0-15.0) % Plt Count 375 (150-450) 10^3/uL MPV 10.0 (9.5-13.5) fL Seg Neuts % (Manual) 78.0 H (43.0-75.0) Band Neutrophils % 1.0 (0-5) % Lymphocytes % (Manual) 10.0 L (20.5-60.0) % Monocytes % (Manual) 8.0 (1.7-12.0) % Eosinophils % (Manual) 0.0 L (0.9-7.0) % Basophils % (Manual) 0.0 L (0.2-2.0) % Metamyelocytes % 3.0 Neutrophils # (Manual) 19.81 H (1.4-6.5) 10^3/uL Band Neutrophils # 0.3 (0.0-0.3) 10^3/uL Lymphocytes # (Manual) 2.54 (1.20-3.80) 10^3/uL Monocytes # (Manual) 2.03 H (0.30-0.80) 10^3/uL Eosinophils # (Manual) 0.00 (0.00-0.70) 10^3/uL Basophils # (Manual) 0.00 (0.00-0.10) 10^3/uL Metamyelocytes # 0.76 Sodium 135 L (136-145) mmol/L Potassium 3.5 (3.5-5.1) mmol/L Chloride 99 (98-107) mmol/L Carbon Dioxide 24.7 (21.0-32.0) mmol/L Anion Gap 14.8 BUN 13.0 (7.0-18.0) mg/dL Creatinine 1.06 (0.70-1.30) mg/dL Est GFR ( Amer) >60 (>=60) Est GFR (Non-Af Amer) >60 (>=60) BUN/Creatinine Ratio 12.3 Glucose 116 H (74-106) mg/dL Lactate 0.9 (0.4-2.0) mmol/L Calcium 9.0 (8.5-10.1) mg/dL Total Bilirubin 0.9 (0.2-1.0) mg/dL AST 15 (15-37) U/L ALT 24 (16-63) U/L Alkaline Phosphatase 96 (46-116) U/L Total Protein 7.4 (6.4-8.2) g/dL Albumin 3.5 (3.4-5.0) g/dL Globulin 3.9 g/dL Albumin/Globulin Ratio 0.9 Urine Color Brown A (YELLOW) Urine Clarity Sl cloudy (CLEAR) Urine pH 6.0 (5.0-9.0) Ur Specific [place] 1.015 (1.005-1.025) Urine Protein 100 A (NEG/TRACE) mg/dL Urine Glucose (UA) Negative (NEGATIVE) mg/dL Urine Ketones Negative (NEGATIVE) mg/dL Urine Occult Blood Moderate A (NEGATIVE) Urine Nitrite Positive A (NEGATIVE) Urine Bilirubin Negative (NEGATIVE) Urine Urobilinogen 0.2 (0.2-1.0) EU/dL Ur Leukocyte Esterase Moderate A (NEGATIVE) Urine RBC 2-5 A (0-2) #/HPF Urine WBC 75-100 A (NONE SEEN) #/HPF Ur Squamous Epith Cells Few A (NONE/RARE) #/LPF Ur Transition Epith Cell Rare A (NONE SEEN) #/LPF Urine Crystals None seen (None Seen) #/HPF Urine Bacteria Large A (NONE SEEN) #/HPF Urine Casts None seen (NONE SEEN) #/LPF Urine Mucus Trace A (NONE SEEN) Ur Culture Indicated? Yes SARS-CoV-2 Ag (CV2AG) Negative (NEGATIVE) Discharge Plan Discharge Chief Complaint: Fever Clinical Impression: Post op infection, Sepsis, Acute UTI Patient Disposition: [facility] Time of Disposition Decision: 19:19
[2024-01-11] MEDS: PIPERACILLIN SODIUM/TAZOBACTAM 4.5 GM in 0.9 % SODIUM CHLORIDE 50 ML IV (16:52)
[2024-01-11] MEDS: ACETAMINOPHEN 325 MG TABLET 650 MG PO (17:52)
[2024-01-11] MEDS: VANCOMYCIN HCL 1,000 MG in 0.9 % SODIUM CHLORIDE 250 ML 250 MG IV (17:55)
[2024-01-11] MEDS: 0.9 % SODIUM CHLORIDE 1,000 ML 1000 ML IV (17:55)
--- NOTE | 2024-01-16 07:42 | PC.NURSE ---
01/16/24 0742 reviewed pt urine c+s from 01/11/[address] Pugh pt tx with IV atb in Er no need for further tx, call placed to pt to follow up no answer. Left message for return call, pt was transferred to [facility]'s is no longer a pt. Maryellen Edge RN
== END 2024-01-11 20:54 | disposition short-term general hospital (02) ==
PROVIDERS: Emergency Provider Emergency Medicine; PCP Internal Medicine
DX: T81.44XA Sepsis following a procedure, initial encounter (principal); A41.9 Sepsis, unspecified organism; N39.0 Urinary tract infection, site not specified; Z20.822 Contact with and (suspected) exposure to COVID-19
CPT/HCPCS: 36415; 71045; 74177; 80053; 81001; 83605; 85007; 85027; 87040; 87086; 87150; 87186; 87811; 96365; 96367; 99285; J2543; J3370; Q9967